=== PATIENT | female | born 1985 | race Two or more races ===

== ENCOUNTER 2023-06-21 20:57 | Emergency (ER) | payer OTHER ==
[~2023-06-21] VITALS: Ht 160 cm; Wt 63.5 kg
[2023-06-21 21:06] VITALS: BP_SYST 118; PULSE 71; RESP 20; TEMP 98.8; O2SAT 100
[2023-06-21] MEDS: KETOROLAC TROMETHAMINE 15 MG VIAL IM ONE (23:01)
[2023-06-21] MEDS: ACETAMINOPHEN 500 MG TABLET PO ONE (23:01)
[2023-06-21 23:04] VITALS: BP_SYST 118; PULSE 81; RESP 18; TEMP 98.3; O2SAT 99
== END 2023-06-21 23:17 | disposition home or self-care (01) ==
LOC: SED 20:57 → EDSEX 20:57 → SED 23:17
DX: G43.909 Migraine, unspecified, not intractable, without status migrainosus (principal); V49.49XA Driver injured in collision with other motor vehicles in traffic accident, initial encounter; Y93.89 Activity, other specified; Y92.488 Other paved roadways as the place of occurrence of the external cause; Y99.8 Other external cause status
CPT/HCPCS: 99285; 70450; 81025; 96372; J1885